=== PATIENT | male | born 1980 | race Caucasian/White ===

== ENCOUNTER 2022-02-22 18:32 | Emergency (ER) | payer OTHER ==
[2022-02-22] MEDS ORDERED: LORazepam 2 MG/ML VIAL IV STA (18:42)
[2022-02-22] MEDS ORDERED: LORazepam 2 MG/ML VIAL As Ordered ONE (18:45)
[2022-02-22] MEDS ORDERED: NS 1,000 ML IV ONE (18:45)
[2022-02-22] MEDS ORDERED: MIRT1TAB15 PO (18:47)
[2022-02-22] MEDS ORDERED: BUPR1SUB5 SL (18:47)
[2022-02-22] MEDS ORDERED: FLUO20CA22 PO (18:47)
[2022-02-22 19:04] LABS: VENOUS BASE EXCESS 0.1 (-2.0-2.0); VENOUS HCO3 18.7 MEQ/L (23.0-27.0); VENOUS O2 SATURATION 96.9 % (60.0-80.0); VENOUS PARTIAL PRESSURE O2 68.8 mmHg (30.0-50.0); VENOUS STANDARD HCO3 24.5 MEQ/L; VENOUS TOTAL CO2 19.2 MEQ/L (24.0-28.0)
[2022-02-22 19:09] LABS: BASO % 0.5 % (0.0-1.0); EOS # 0.1 10^3/uL (0.0-0.5); EOS % 1.6 % (0.0-3.0); HEMATOCRIT 41.6 % (42.0-52.0); HEMOGLOBIN 14.3 g/dl (13.5-17.5); LYMPH # 3.1 10^3/uL (1.5-5.0); LYMPH % 40.9 % (24.0-44.0); MEAN CORPUSCULAR HEMOGLOBIN 29.8 pg (27.0-33.0); MEAN CORPUSCULAR HGB CONC 34.4 g/dl (32.0-36.5); MEAN CORPUSCULAR VOLUME 86.7 fl (80.0-96.0); MONO # 0.6 10^3/uL (0.0-0.8); MONO % 8.3 % (2.0-8.0); NEUTROPHILS # 3.6 10^3/uL (1.5-8.5); NEUTROPHILS % 48.6 % (36.0-66.0); PLATELET COUNT, AUTOMATED 309 10^3/uL (150-450); WHITE BLOOD COUNT 7.5 10^3/uL (4.0-10.0)
[2022-02-22 19:39] LABS: RSV AMPLIFICATION NEGATIVE (NEGATIVE)
[2022-02-22 19:40] LABS: OSMOLALITY SERUM 289 MOSM/KG (275-295)
[2022-02-22 19:53] LABS: CK-MB VALUE MASS 7.5 NG/ML (<3.6); MB/CK RELATIVE INDEX 2.78 (< OR =4)
[2022-02-22 19:54] LABS: ACETAMINOPHEN LEVEL < 2.0 UG/ML (10.0-30.0); ALBUMIN 4.3 GM/DL (3.2-5.2); ALT/SGPT 27 U/L (12-78); BILIRUBIN,DIRECT 0.2 MG/DL (0.0-0.2); BLOOD UREA NITROGEN 22 MG/DL (7-18); CALCIUM LEVEL 9.6 MG/DL (8.5-10.1); CARBON DIOXIDE LEVEL 21 MEQ/L (21-32); CHLORIDE LEVEL 105 MEQ/L (98-107); CREATININE FOR GFR 1.12 MG/DL (0.70-1.30); ETHYL ALCOHOL (ETHANOL) < 0.003 % (0.000-0.010); GLOMERULAR FILTRATION RATE > 60.0 (>60); GLUCOSE, FASTING 147 MG/DL (70-100); SALICYLATE LEVEL < 1.7 MG/DL (5.0-30.0); SODIUM LEVEL 140 MEQ/L (136-145); TOTAL PROTEIN 7.7 GM/DL (6.4-8.2)
[2022-02-23 03:00] VITALS: BP 108/59
[2022-02-23 03:36] LABS: AMPHETAMINES LEVEL URINE NEGATIVE (NEGATIVE); BARBITURATES URINE NEGATIVE (NEGATIVE); BENZODIAZEPINES URINE NEGATIVE (NEGATIVE); CANNABINOIDS URINE POSITIVE (NEGATIVE); COCAINE METABOLITE URINE NEGATIVE (NEGATIVE); METHADONE URINE NEGATIVE (NEGATIVE); OPIATES URINE NEGATIVE (NEGATIVE); PHENCYCLIDINE URINE NEGATIVE (NEGATIVE)
== END 2022-02-23 03:38 | disposition home or self-care (01) ==
LOC: M ED 18:32
DX: R06.4 Hyperventilation (principal); F12.180 Cannabis abuse with cannabis-induced anxiety disorder; Z79.899 Other long term (current) drug therapy
CPT/HCPCS: 36415; 71045; 80048; 80076; 80143; 80307; 82077; 82550; 82553; 82803; 83605; 83930; 84443; 85025; 87631; 93005; 93041; 94760; 96374; 99285; J2060

== ENCOUNTER → 2023-05-27 | Outpatient (REF) ==
[~2023-05-27] MED LIST: BUPR1SUB5 SL; FLUO20CA22 PO; MIRT1TAB15 PO
== END ==
LOC: M PLAIMG 13:27
PROVIDERS: ATTEND Internal Medicine
DX: R52 Pain, unspecified (principal)